=== PATIENT | female | born 1970 | race Caucasian/White ===

== ENCOUNTER 2016-09-13 14:56 | Outpatient (CLI) | payer OTHER ==
[~2016-09-13 14:56] MED LIST: IBUPROFEN600 MG PO; NORCO1 TA1 PO; VISTARIL25 MG PO
--- NOTE | 2016-09-13 16:04 | DIAGNOSTIC IMAGING REPORT ---
PROCEDURE: US SOFT TISSUE ANYWHERE INDICATION: Swelling of the medial sinus volar wrist. TECHNIQUE: Conner scale and color Doppler sonographic images of the right volar were obtained with limited comparison images of the left wrist. COMPARISON: None. FINDINGS: There is mild thickening (4 mm) and tendinosis of the flexor carpi radialis tendon associated with small amount of fluid in the tendon sheath. There is no evidence of mass or ganglion cyst. IMPRESSION: 1. Mild thickening and tendinosis of the flexor carpi radialis tendon with a small amount of fluid in the tendon sheath. Findings are compatible with tenosynovitis. 2. Findings discussed with the patient and called to GENNY Pascal.
== END 2016-09-13 23:00 ==
LOC: US SRH 14:56
DX: M65.849 Other synovitis and tenosynovitis, unspecified hand (principal)